=== PATIENT | female | born 1985 | race Caucasian/White ===

== ENCOUNTER → 2016-10-12 | Outpatient (CLI) | payer OTHER ==
--- NOTE | 2016-10-12 20:46 | DX ---
Right Ankle - Three Views dated October 12, 2016 Indication: Follow up distal fibular fracture. Technique: AP, mortise, and lateral views. Comparison: August 30, 2016. Findings: The lucency coursing through the distal fibular cortex, 3 cm superior to the plafond, has not significantly changed since August 2016. No periosteal reaction has developed. The ankle is o therwise normal. Impression: No change since August 2016. Perhaps the lucency represents a benign atypical nutrien t, rather than hairline fracture.
== END ==
LOC: FIMAGING 17:32
PROVIDERS: ATTEND Family Medicine
DX: S82.831D Other fracture of upper and lower end of right fibula, subsequent encounter for closed fracture with routine healing (principal); X58.XXXD Exposure to other specified factors, subsequent encounter